=== PATIENT | male | born 2005 | race Caucasian/White ===

== ENCOUNTER 2023-03-13 16:58 | Emergency (ER) | payer BC ==
[2023-03-13] MEDS ORDERED: Tetracaine HCl/PF 0.5% 4 ML Bottle EYEBOTH ONE (17:41)
[2023-03-13] MEDS ORDERED: Erythromycin Base 0.5% Ophth Oint 1 GM Tube EYELF ONE (17:50)
== END 2023-03-13 18:32 | disposition home or self-care (01) ==
LOC: MW.ED 16:58
DX: S05.02XA Injury of conjunctiva and corneal abrasion without foreign body, left eye, initial encounter (principal); W20.8XXA Other cause of strike by thrown, projected or falling object, initial encounter
CPT/HCPCS: 99283; A9270; J3490